=== PATIENT | female | born 1940 | race Caucasian/White ===

== ENCOUNTER 2018-04-12 13:31 | Inpatient (IN) | payer MEDICARE, MEDICAID ==
[~2018-04-12] VITALS: Ht 165.1 cm; Wt 76.7 kg
[2018-04-12] MEDS ORDERED: PRED2.5T4 PO (13:37)
[2018-04-12] MEDS ORDERED: METHYLPREDNISOLONE SOD SUCC 125 MG/2 ML VIAL IV STA (14:08)
[2018-04-12] MEDS ORDERED: ALBUTEROL (0.083%) 2.5MG/3ML NEB HHN STA (14:08)
[2018-04-12] MEDS ORDERED: IPRATROPIUM BROMIDE (0.02%) 0.5MG/2.5ML NEB HHN STA (14:08)
[2018-04-12 15:09] LABS: HEMATOCRIT. 33.8 % (36.0-48.0); HEMOGLOBIN. 10.8 g/dL (12.0-16.0); MEAN CORPUSCULAR HEMOGLOBIN 29.3 pg (28.0-32.0); MEAN CORPUSCULAR VOLUME 91.3 fL (81.0-99.0); MEAN PLATELET VOLUME 9.2 fl (7.4-10.4); PLATELET 272 x1000/uL (130-400); RED CELL DISTRIBUTION WIDTH 15.7 % (11.6-14.6)
[2018-04-12 15:20] LABS: CHLORIDE 113 mEq/L (98-107)
[2018-04-12] MEDS ORDERED: ASPIRIN 81MG TABLET PO ONE (15:30)
[2018-04-12] MEDS ORDERED: FUROSEMIDE 20MG/2ML VIAL IVP ONE (15:30)
[2018-04-12 16:23] LABS: PLATELET ESTIMATE NORMAL
[2018-04-12] MEDS ORDERED: NA PHOS,M-B/NA PHOS,DI-BA ENEMA 118ML PR PRN (22:15)
[2018-04-12] MEDS ORDERED: ONDANSETRON HCL 4MG/2ML INJ IV PRN (22:15)
[2018-04-12] MEDS ORDERED: CLONIDINE 0.1MG TABLET PO PRN (22:15)
[2018-04-12] MEDS ORDERED: ACETAMINOPHEN 325MG TABLET PO PRN (22:15)
[2018-04-12] MEDS ORDERED: MAGNESIUM/ALUMINUM HYDROXIDE/SIMETHICONE 30ML UDC PO PRN (22:15)
[2018-04-12] MEDS ORDERED: HYDROCODONE/ACETAMINOPHEN 5/325MG TABLET PO PRN (22:15)
[2018-04-12] MEDS ORDERED: LORAZEPAM 2MG/ML CPJ IV PRN (22:15)
[2018-04-12 22:35] VITALS: BP 146/65
[2018-04-12] MEDS: GUAIFENESIN 200MG/10ML SUGAR FREE UDC PO PRN (23:18)
[2018-04-12] MEDS: ENOXAPARIN 30MG/0.3ML SYR SUBCUT SCH (23:42)
[2018-04-12] MEDS: MORPHINE SULFATE 4 MG/ML CPJ (NOT FOR IM USE) IV PRN (23:43)
[2018-04-12 23:45] VITALS: BP 148/64
[2018-04-13] MEDS ORDERED: LEVOFLOXACIN 500MG PREMIX 100 ML IV NR (01:00)
[2018-04-13] MEDS: GUAIFENESIN 200MG/10ML SUGAR FREE UDC PO PRN ×2 (03:52→21:31)
[2018-04-13 04:00] VITALS: BP 137/54
[2018-04-13 07:00] LABS: BG CARBOXYHEMOGLOBIN 0.3 % (0.5-1.5); BG DEOXYHEMOGLOBIN 6.7 % (0.0-5.0); BG FRACTION INSPIRED OXYGEN 21; BG METHEMOGLOBIN 0.3 % (0.0-1.5); BG OXYGEN SATURATION 93.3 % (92.0-98.5); BG OXYHEMOGLOBIN 92.7 % (94.0-97.0); BG PCO2 30.8 mmHg (35.0-45.0); BG PH 7.385 (7.350-7.450); BG PO2 70.6 mmHg (75.0-100.0); BG SAMPLE SITE RIGHT RADIAL; BG TOTAL HEMOGLOBIN 11.4 g/dL (12.0-18.0); BG VENT MODE ROOM AIR
[2018-04-13 08:00] VITALS: BP 123/61
[2018-04-13 08:04] LABS: HEMATOCRIT. 32.7 % (36.0-48.0); HEMOGLOBIN. 10.7 g/dL (12.0-16.0); MEAN CORPUSCULAR HEMOGLOBIN 29.9 pg (28.0-32.0); MEAN CORPUSCULAR VOLUME 91.5 fL (81.0-99.0); MEAN PLATELET VOLUME 9.1 fl (7.4-10.4); PLATELET 295 x1000/uL (130-400); RED BLOOD CELL COUNT 3.57 mill/uL (4.2-5.4)
[2018-04-13] MEDS ORDERED: AMLODIPINE 10MG TABLET PO SCH (09:00)
[2018-04-13] MEDS: FUROSEMIDE 20MG/2ML VIAL IVP SCH (09:31)
[2018-04-13] MEDS: METHYLPREDNISOLONE SOD SUCC 40 MG/ML VIAL IV SCH (09:31)
[2018-04-13 09:35] LABS: CHLORIDE 111 mEq/L (98-107)
[2018-04-13 09:42] LABS: CREATINE KINASE 340 IU/L (26-192); CREATINE KINASE MB FRACTION 6.3 ng/mL (0.5-3.6); HDL CHOLESTEROL 36 mg/dL (40-59); LDL CHOLESTEROL 107 mg/dL (5-100)
[2018-04-13] MEDS: ASPIRIN 81MG TABLET PO SCH (09:52)
[2018-04-13 12:12] LABS: T4 FREE 1.41 ng/dL (0.76-1.46)
[2018-04-13 13:58] LABS: PLATELET ESTIMATE NORMAL
[2018-04-13 16:00] VITALS: BP 121/65
[2018-04-13 16:34] LABS: CREATINE KINASE MB FRACTION 6.4 ng/mL (0.5-3.6)
[2018-04-13 20:00] VITALS: BP 146/87
[2018-04-13] MEDS: MORPHINE SULFATE 4 MG/ML CPJ (NOT FOR IM USE) IV PRN (21:31)
[2018-04-13] MEDS: LEVOFLOXACIN 250MG PREMIX 50 ML IV SCH (21:31)
[2018-04-13] MEDS: ENOXAPARIN 30MG/0.3ML SYR SUBCUT SCH (23:56)
[2018-04-14] VITALS (7 sets, daily range): BP systolic 122–145; BP diastolic 50–86
[2018-04-14] MEDS: GUAIFENESIN 200MG/10ML SUGAR FREE UDC PO PRN ×2 (02:27→08:45)
[2018-04-14] MEDS: ASPIRIN 81MG TABLET PO SCH (08:44)
[2018-04-14] MEDS: METHYLPREDNISOLONE SOD SUCC 40 MG/ML VIAL IV SCH (09:30)
[2018-04-14] MEDS: FUROSEMIDE 20MG/2ML VIAL IVP SCH (09:30)
[2018-04-14] MEDS ORDERED: BENZONATATE 100MG CAPSULE PO PRN (10:15)
[2018-04-14 11:18] LABS: HEMATOCRIT. 34.2 % (36.0-48.0); HEMOGLOBIN. 10.9 g/dL (12.0-16.0); MEAN CORPUSCULAR HEMOGLOBIN 29.3 pg (28.0-32.0); MEAN CORPUSCULAR VOLUME 92.1 fL (81.0-99.0); MEAN PLATELET VOLUME 9.1 fl (7.4-10.4); PLATELET 324 x1000/uL (130-400); RED BLOOD CELL COUNT 3.71 mill/uL (4.2-5.4); RED CELL DISTRIBUTION WIDTH 16.4 % (11.6-14.6)
[2018-04-14 11:41] LABS: CHLORIDE 109 mEq/L (98-107)
[2018-04-14] MEDS: DOCUSATE SODIUM 100MG CAPSULE PO PRN ×2 (12:29→21:21)
[2018-04-14] MEDS: CARVEDILOL 3.125 MG TABLET PO SCH ×2 (12:30→21:21)
[2018-04-14] MEDS ORDERED: IPRATROPIUM/ALBUTEROL 0.5-3(2.5)MG/3ML NEB HHN PRN (14:15)
[2018-04-14 14:17] LABS: PLATELET ESTIMATE NORMAL
[2018-04-14] MEDS: IPRATROPIUM/ALBUTEROL 0.5-3(2.5)MG/3ML NEB HHN SCH ×2 (15:51→20:43)
[2018-04-14] MEDS ORDERED: OSELTAMIVIR 30MG CAPSULE PO SCH (17:00)
[2018-04-14 19:18] LABS: HEPATITIS B SURFACE ANTIGEN NEGATIVE
[2018-04-14 19:47] LABS: HEPATITIS B CORE AB IGM NEGATIVE
[2018-04-14 19:48] LABS: HEPATITIS A AB IGM NEGATIVE (NEGATIVE)
[2018-04-14] MEDS: GUAIFENESIN 600MG ER TABLET PO SCH (21:21)
[2018-04-14] MEDS: LEVOFLOXACIN 250MG PREMIX 50 ML IV SCH (21:22)
[2018-04-14] MEDS: MORPHINE SULFATE 4 MG/ML CPJ (NOT FOR IM USE) IV PRN (21:22)
[2018-04-14] MEDS ORDERED: DIPHENHYDRAMINE 25MG CAPSULE PO NR (22:12)
[2018-04-14] MEDS: ENOXAPARIN 30MG/0.3ML SYR SUBCUT SCH (23:33)
[2018-04-15] VITALS: BP 124/67
[2018-04-15] MEDS: IPRATROPIUM/ALBUTEROL 0.5-3(2.5)MG/3ML NEB HHN SCH ×4 (01:13→20:55)
[2018-04-15 04:00] VITALS: BP 137/76
[2018-04-15 08:00] VITALS: BP 125/79
[2018-04-15] MEDS: ASPIRIN 81MG TABLET PO SCH (09:53)
[2018-04-15] MEDS: FUROSEMIDE 20MG/2ML VIAL IVP SCH (09:53)
[2018-04-15] MEDS: CARVEDILOL 3.125 MG TABLET PO SCH ×2 (09:54→20:12)
[2018-04-15] MEDS: GUAIFENESIN 600MG ER TABLET PO SCH ×2 (09:54→20:12)
[2018-04-15] MEDS: AMLODIPINE 5MG TABLET PO SCH (10:18)
[2018-04-15] MEDS: OMEPRAZOLE 20MG CAPSULE EXTENDED RELEASE PO SCH (10:18)
[2018-04-15 12:00] VITALS: BP 134/74
[2018-04-15] MEDS ORDERED: SODIUM POLYSTYRENE SULFONATE 15 G/60 ML BOT PO NR (13:30)
[2018-04-15 16:00] VITALS: BP 131/70
[2018-04-15] MEDS: OSELTAMIVIR 30MG CAPSULE PO SCH (17:37)
[2018-04-15 20:00] VITALS: BP_SYST 128; BP_SYST 140; BP_DIAS 53; BP_DIAS 70
[2018-04-15] MEDS: LEVOFLOXACIN 250MG PREMIX 50 ML IV SCH (20:13)
[2018-04-15] MEDS: MORPHINE SULFATE 4 MG/ML CPJ (NOT FOR IM USE) IV PRN (20:23)
[2018-04-15] MEDS: ENOXAPARIN 30MG/0.3ML SYR SUBCUT SCH (23:30)
[2018-04-16] VITALS: BP 132/65
[2018-04-16] MEDS: IPRATROPIUM/ALBUTEROL 0.5-3(2.5)MG/3ML NEB HHN SCH ×3 (01:20→20:57)
[2018-04-16 04:00] VITALS: BP 132/76
[2018-04-16 08:00] VITALS: BP 144/55
[2018-04-16] MEDS: FUROSEMIDE 20MG/2ML VIAL IVP SCH (08:50)
[2018-04-16] MEDS: CARVEDILOL 3.125 MG TABLET PO SCH (08:50)
[2018-04-16] MEDS: GUAIFENESIN 600MG ER TABLET PO SCH (08:50)
[2018-04-16] MEDS: AMLODIPINE 5MG TABLET PO SCH (08:50)
[2018-04-16] MEDS: OMEPRAZOLE 20MG CAPSULE EXTENDED RELEASE PO SCH (08:50)
[2018-04-16] MEDS: ASPIRIN 81MG TABLET PO SCH (08:53)
[2018-04-16] MEDS: FUROSEMIDE 40MG TABLET PO SCH (10:45)
[2018-04-16 12:00] VITALS: BP 106/62
[2018-04-16 13:31] LABS: HEMATOCRIT. 37.2 % (36.0-48.0); HEMOGLOBIN. 11.6 g/dL (12.0-16.0); MEAN CORPUSCULAR HEMOGLOBIN 28.9 pg (28.0-32.0); MEAN CORPUSCULAR VOLUME 92.2 fL (81.0-99.0); PLATELET 324 x1000/uL (130-400); RED BLOOD CELL COUNT 4.03 mill/uL (4.2-5.4); RED CELL DISTRIBUTION WIDTH 16.2 % (11.6-14.6)
[2018-04-16 13:53] LABS: NUCLEATED RED BLOOD CELLS 1 /100 WBC
[2018-04-16 13:54] LABS: PLATELET ESTIMATE NORMAL
[2018-04-16 16:00] VITALS: BP 106/81
[2018-04-16] MEDS: OSELTAMIVIR 30MG CAPSULE PO SCH (19:02)
[2018-04-16 20:00] VITALS: BP 118/51
[2018-04-17] VITALS: BP 120/56
[2018-04-17] MEDS: GUAIFENESIN 600MG ER TABLET PO SCH ×2 (00:07→09:11)
[2018-04-17] MEDS: CARVEDILOL 3.125 MG TABLET PO SCH ×2 (00:07→09:08)
[2018-04-17] MEDS: ENOXAPARIN 30MG/0.3ML SYR SUBCUT SCH (00:08)
[2018-04-17] MEDS: LEVOFLOXACIN 250MG PREMIX 50 ML IV SCH (00:08)
[2018-04-17] MEDS: MORPHINE SULFATE 4 MG/ML CPJ (NOT FOR IM USE) IV PRN (00:18)
[2018-04-17] MEDS: IPRATROPIUM/ALBUTEROL 0.5-3(2.5)MG/3ML NEB HHN SCH ×3 (01:00→13:05)
[2018-04-17] MEDS: GUAIFENESIN 200MG/10ML SUGAR FREE UDC PO PRN (02:40)
[2018-04-17 04:00] VITALS: BP 123/58
[2018-04-17 08:00] VITALS: BP 128/46
[2018-04-17] MEDS ORDERED: FAMOTIDINE 20MG TABLET PO SCH (09:00)
[2018-04-17] MEDS: FUROSEMIDE 20MG/2ML VIAL IVP SCH (09:00)
[2018-04-17] MEDS: ASPIRIN 81MG TABLET PO SCH (09:07)
[2018-04-17] MEDS: FUROSEMIDE 40MG TABLET PO SCH (09:08)
[2018-04-17] MEDS: AMLODIPINE 5MG TABLET PO SCH (09:08)
[2018-04-17 12:00] VITALS: BP 115/45
[2018-04-17 12:53] LABS: HEMATOCRIT. 38.2 % (36.0-48.0); HEMOGLOBIN. 12.6 g/dL (12.0-16.0); MEAN CORPUSCULAR HEMOGLOBIN 29.4 pg (28.0-32.0); MEAN PLATELET VOLUME 8.8 fl (7.4-10.4); PLATELET 359 x1000/uL (130-400); RED BLOOD CELL COUNT 4.29 mill/uL (4.2-5.4); RED CELL DISTRIBUTION WIDTH 15.8 % (11.6-14.6)
[2018-04-17 13:20] LABS: PLATELET ESTIMATE NORMAL
[2018-04-20 06:18] LABS: ANTI-NUCLEAR ANTIBODIES DIRECT Negative (Negative); COMPLEMENT C3 105 mg/dL (82-167)
== END 2018-04-17 15:35 | disposition home or self-care (01) | DRG 682 ==
LOC: ER 13:31 → EDBEDREQ 14:11 → 7WST 17:00 → EDBEDREQTM 17:11 → EDBEDREQ 17:11 → ENRESERV 20:24 → SUPCPDRO 22:08
PROVIDERS: ADMIT Hospitalist; ATTEND Hospitalist
DX: N17.9 Acute kidney failure, unspecified (principal); J96.01 Acute respiratory failure with hypoxia; I50.23 Acute on chronic systolic (congestive) heart failure; E44.0 Moderate protein-calorie malnutrition; D68.59 Other primary thrombophilia; I13.0 Hypertensive heart and chronic kidney disease with heart failure and stage 1 through stage 4 chronic kidney disease, or unspecified chronic kidney disease; I42.9 Cardiomyopathy, unspecified; E87.2 Acidosis; I27.20 Pulmonary hypertension, unspecified; E87.5 Hyperkalemia; D63.8 Anemia in other chronic diseases classified elsewhere; D72.829 Elevated white blood cell count, unspecified; I25.10 Atherosclerotic heart disease of native coronary artery without angina pectoris; K21.9 Gastro-esophageal reflux disease without esophagitis; M19.90 Unspecified osteoarthritis, unspecified site; N18.9 Chronic kidney disease, unspecified; Z85.3 Personal history of malignant neoplasm of breast; Z90.12 Acquired absence of left breast and nipple; Z92.21 Personal history of antineoplastic chemotherapy; Z68.28 Body mass index [BMI] 28.0-28.9, adult; Z88.6 Allergy status to analgesic agent; Z79.899 Other long term (current) drug therapy
CPT/HCPCS: 36415; 36600; 71045; 78582; 80048; 80061; 82375; 82550; 82553; 82805; 83036; 83880; 84439; 84443; 84484; 85007; 85027; 85379; 86038; 86160; 86705; 86709; 86803; 87340; 93005; 93306; 93970; 94640; 96374; 96375; 97162; 99291; A9558; C1893; J1650; J1940; J1956; J2270; J2920; J2930; J7050; J7611; J7620; Q0163